=== PATIENT | female | born 1950 | race Caucasian/White ===

== ENCOUNTER 2019-10-28 06:57 | Emergency (ER) | payer BC, MEDICAID ==
[~2019-10-28] VITALS: Ht 167.6 cm; Wt 125.2 kg
[2019-10-28 07:00] VITALS: BP_SYST 191
--- NOTE | 2019-10-28 07:32 | NUR ---
Patient to ER bed 03 to gown for evaluation. Side rails up.
--- NOTE | 2019-10-28 07:34 | NUR ---
Pt brought by self,pt on wheelchair , A&Ox4,pt presents to ER with R hip/ R knee/ R lower back pain, after slip and fall today while walking her dog, skin pink and warm, cap refill <3, VSS, respirations even and unlabored.
--- NOTE | 2019-10-28 07:45 | NUR ---
Dr Garza examining patient at bedside
[2019-10-28] MEDS ORDERED: fentaNYL CITRATE/PF 100 MCG/2 ML AMP IM ONE (08:00)
[2019-10-28 09:37] VITALS: BP_SYST 172
--- NOTE | 2019-10-28 09:38 | NUR ---
Patient given written and verbal discharge instructions and verbalizes understanding. ER MD discussed with patient the results and treatment provided. Patient in stable condition. ID arm band removed. Rx of Tramdol given. Patient educated on pain management and to follow up with PMD. Pain Scale 3/10 tolerable for patient. Opportunity for questions provided and answered. Medication side effect fact sheet provided.
== END 2019-10-28 09:38 | disposition home or self-care (01) ==
LOC: SED 06:57
DX: S80.01XA Contusion of right knee, initial encounter (principal); S70.01XA Contusion of right hip, initial encounter; S30.0XXA Contusion of lower back and pelvis, initial encounter; Z88.2 Allergy status to sulfonamides; Z88.5 Allergy status to narcotic agent; W01.0XXA Fall on same level from slipping, tripping and stumbling without subsequent striking against object, initial encounter; Y93.89 Activity, other specified; Y92.89 Other specified places as the place of occurrence of the external cause; Y99.8 Other external cause status
CPT/HCPCS: 72100; 73502; 73560; 96372; 99284; J3010